=== PATIENT | male | born 1995 | race Caucasian/White ===

== ENCOUNTER 2022-01-19 08:40 | Emergency (ER) | payer BC ==
[2022-01-19] MEDS ORDERED: NA CHLORIDE 0.9% 1,000 ML ONE (09:10)
[2022-01-19 09:19] LABS: Absolute Lymphocytes (CBC) 1.7 K/uL (0.7-4.9); Hematocrit 42.7 % (39.6-49.0); Lymphocytes % 26.3 % (15.3-44.8); MCV 91.7 fL (80-100); MPV 8.9 fL (7.6-11.3); RBC Red Blood Cell Count 4.65 M/uL (4.33-5.43)
[2022-01-19 09:37] LABS: Albumin 4.1 g/dL (3.4-5.0); Bilirubin Total 0.3 mg/dL (0.2-1.0); Potassium 4.1 mmol/L (3.5-5.1)
--- NOTE | 2022-01-19 09:40 | RAD REPORT ---
EXAM DESCRIPTION: CT - Head Brain Wo Cont - 01/19/2022 9:29 am CLINICAL HISTORY: Seizure disorder, no clinical change COMPARISON: Head Brain Wo Cont dated 04/07/2017; Head Brain Wo Cont dated 03/26/2017 TECHNIQUE: All CT scans are performed using dose optimization technique as appropriate and may inclu de automated exposure control or mA/KV adjustment according to patient size. FINDINGS: No intracranial hemorrhage, hydrocephalus or extra-axial fluid collection.No areas of brai n edema or evidence of midline shift. Left frontal lobe encephalomalacia is present. The paranasal sinuses and mastoids are clear. The calvarium is intact. IMPRESSION: No acute intracranial abnormality.
--- NOTE | 2022-01-19 10:11 | EDPHYS ---
Physician Documentation [facility] Name: Chan Del Cid Age: 26 yrs Sex: Male : 1995 Arrival Date: 01/19/2022 Time: 08:41 Bed 5 Private MD: ED Physician Sanjay Cadena HPI: 01/19 09:04 This 26 yrs old Male presents to ER via EMS with complaints of Seizure. kdr 09:04 The patient presents after having a single isolated seizure. Character of seizure(s): kdr Loss of consciousness: the patient experienced loss of consciousness, Motor activity:. Seizure onset: just prior to arrival. Context: the seizure(s) was witnessed, by co-worker(s), occurred at work, occurred while the patient was working, Contributing factors: unknown. Seizure Hx: Last seizure: The patient's last seizure was approximately 6 month(s) ago, Seizure medications:. Associated injury: Head/face: left side of the back of head and left occipital area. EMS care: none. Current symptoms: Currently, the patient is not experiencing any symptoms, headache, that is mild. The patient has experienced similar episodes in the past, multiple times. The patient has not recently seen a physician. Historical: - Allergies: 08:50 PENICILLINS; ss - Home Meds: 08:50 zonisamide Oral [Active]; ss - PMHx: 08:50 epilepsy; ss - Immunization history:: Adult Immunizations unknown, Client reports receiving the 2nd dose of the Covid vaccine. - Social history:: Smoking status: Patient denies any tobacco usage or history of. Patient/guardian denies using street drugs. ROS: 09:04 Constitutional: Negative for fever, chills, and weight loss, Eyes: Negative for injury, kdr pain, redness, and discharge, ENT: Negative for injury, pain, and discharge, Neck: Negative for injury, pain, and swelling, Cardiovascular: Negative for chest pain, palpitations, and edema, Respiratory: Negative for shortness of breath, cough, wheezing, and pleuritic chest pain, Abdomen/GI: Negative for abdominal pain, nausea, vomiting, diarrhea, and constipation, Back: Negative for injury and pain, : Negative for injury, bleeding, discharge, and swelling, MS/Extremity: Negative for injury and deformity, Skin: Negative for injury, rash, and discoloration, Psych: Negative for depression, anxiety, suicide ideation, homicidal ideation, and hallucinations, Allergy/Immunology: Negative for hives, rash, and allergies, Endocrine: Negative for neck swelling, polydipsia, polyuria, polyphagia, and marked weight changes, Hematologic/Lymphatic: Negative for swollen nodes, abnormal bleeding, and unusual bruising. 09:04 Neuro: Positive for headache, seizure activity, Negative for altered mental status, dizziness, gait disturbance, hearing loss, numbness, speech changes, syncope, near syncope, tingling, tinnitus, tremor, visual changes. Exam: 09:04 Constitutional: This is a well developed, well nourished patient who is awake, alert, kdr and in no acute distress. Head/Face: Normocephalic, atraumatic. Eyes: Pupils equal round and reactive to light, extra-ocular motions intact. Lids and lashes normal. Conjunctiva and sclera are non-icteric and not injected. Cornea within normal limits. Periorbital areas with no swelling, redness, or edema. Neck: Trachea midline, no thyromegaly or masses palpated, and no cervical lymphadenopathy. Supple, full range of motion without nuchal rigidity, or vertebral point tenderness. No Meningismus. Chest/axilla: Normal chest wall appearance and motion. Nontender with no deformity. No lesions are appreciated. Cardiovascular: Regular rate and rhythm with a normal S1 and S2. No gallops, murmurs, or rubs. Normal PMI, no JVD. No pulse deficits. Respiratory: Lungs have equal breath sounds bilaterally, clear to auscultation and percussion. No rales, rhonchi or wheezes noted. No increased work of breathing, no retractions or nasal flaring. Abdomen/GI: Soft, non-tender, with normal bowel sounds. No distension or tympany. No guarding or rebound. No evidence of tenderness throughout. Back: No spinal tenderness. No costovertebral tenderness. Full range of motion. Skin: Warm, dry with normal turgor. Normal color with no rashes, no lesions, and no evidence of cellulitis. MS/ Extremity: Pulses equal, no cyanosis. Neurovascular intact. Full, normal range of motion. Neuro: Awake and alert, GCS 15, oriented to person, place, time, and situation. Cranial nerves II-XII grossly intact. Motor strength 5/5 in all extremities. Sensory grossly intact. Cerebellar exam normal. Normal gait. Psych: Awake, alert, with orientation to person, place and time. Behavior, mood, and affect are within normal limits. Vital Signs: 08:45 BP 129 / 80; Pulse 133; Resp 17; Temp 98.4(O); Pulse Ox 98% on R/A; Weight 72.57 kg; ss Height 5 ft. 11 in. (180.34 cm); Pain 6/10; 09:01 Pulse 115; kr3 08:45 Body Mass Index 22.32 (72.57 kg, 180.34 cm) ss [place] Coma Score: 08:50 Eye Response: spontaneous(4). Verbal Response: oriented(5). Motor Response: obeys ss commands(6). Total: 15. MDM: 10:10 Patient medically screened. kdr 10:37 Data reviewed: vital signs, nurses notes, lab test result(s), radiologic studies. kdr Counseling: I had a detailed discussion with the patient and/or guardian regarding: the historical points, exam findings, and any diagnostic results supporting the discharge/admit diagnosis, lab results, radiology results, the need for outpatient follow up. 01/19 09:01 Order name: CBC with Diff; Complete Time: 10:08 kdr 01/19 09:01 Order name: Comprehensive Metabolic Panel; Complete Time: 10:08 kdr 01/19 09:01 Order name: CT Head Brain wo Cont; Complete Time: 10:08 kdr Administered Medications: 09:05 Drug: NS 0.9% 1000 ml Route: IV; Rate: 1 bolus; Site: right antecubital; vargas Disposition Summary: 01/19/22 10:10 Discharge Ordered Location: Home kdr Problem: an acute exacerbation kdr Symptoms: have improved kdr Condition: Stable kdr Diagnosis - Other seizures kdr - Unspecified superficial injury of other part of head, initial encounter kdr Followup: kdr - With: Private Physician - When: 2 - 3 days - Reason: If symptoms return, Further diagnostic work-up, Recheck today's complaints, Continuance of care, Re-evaluation by your physician Discharge Instructions: - Discharge Summary Sheet kdr - Seizure, Adult, [id number] kdr - Head Injury, Adult, [id number] kdr Forms: - Medication Reconciliation Form kdr - Thank You Letter kdr - Work release form eb Prescriptions: - Ibuprofen 600 mg Oral Tablet - take 1 tablet by ORAL route every 6 hours As needed take with food; 12 tablet; kdr Refills: 0, Product Selection Permitted Signatures: Dispatcher [employer] Sanjay Villa MD MD kdr Smirch, Shelby, RN RN ss Jessika Ramirez RN RN vargas
--- NOTE | 2022-01-19 10:11 | ER ---
Nurse's Notes [facility] Name: Chan Del Cid Age: 26 yrs Sex: Male : 1995 Arrival Date: 01/19/2022 Time: 08:41 Bed 5 Private MD: Diagnosis: Other seizures;Unspecified superficial injury of other part of head, initial encounter Presentation: 01/19 08:45 Chief complaint: Patient states: seizure while at work that reportedly lasted 15 ss seconds. HX of epilepsy. Pt states that his last seizure was, "a long time ago." Pt did fall backwards, hitting head. Small laceration noted to back of head. No active bleeding noted at this time. Coronavirus screen: Client denies travel out of the [place] in the last 14 days. Ebola Screen: Patient denies exposure to infectious person. Patient denies travel to an Ebola-affected area in the 21 days before illness onset. Initial Sepsis Screen: Does the patient meet any 2 criteria? No. Patient's initial sepsis screen is negative. Does the patient have a suspected source of infection? No. Patient's initial sepsis screen is negative. Risk Assessment: Do you want to hurt yourself or someone else? Patient reports no desire to harm self or others. Onset of symptoms was January 19, 2022. Care prior to arrival: IV initiated. 18 GA, in the right antecubital area, Glucose check: 205. 08:45 Method Of Arrival: EMS: [facility] 08:45 Acuity: AIME 2 ss Triage Assessment: 08:54 General: Appears in no apparent distress. Behavior is calm, cooperative. vargas Historical: - Allergies: 08:50 PENICILLINS; ss - Home Meds: 08:50 zonisamide Oral [Active]; ss - PMHx: 08:50 epilepsy; ss - Immunization history:: Adult Immunizations unknown, Client reports receiving the 2nd dose of the Covid vaccine. - Social history:: Smoking status: Patient denies any tobacco usage or history of. Patient/guardian denies using street drugs. Screenin:50 Abuse screen: Denies threats or abuse. Denies injuries from another. Nutritional ss screening: No deficits noted. Tuberculosis screening: Never had TB. Fall Risk Fall in past 12 months (25 points). Secondary diagnosis (15 points) seizures, IV access (20 points). Ambulatory Aid- None/Bed Rest/Nurse Assist (0 pts). Gait- Normal/Bed Rest/Wheelchair (0 pts) Mental Status- Oriented to own ability (0 pts). Assessment: 08:50 Reassessment: Dr. Cadena at bedside evaluating patient. ss 08:53 Pain: Denies pain. Neuro: Level of Consciousness is awake, alert, obeys commands, vargas Oriented to person, place, time, situation, Seizure activity reported prior to arrival. Derm: abrasion to right side forehead. Vital Signs: 08:45 BP 129 / 80; Pulse 133; Resp 17; Temp 98.4(O); Pulse Ox 98% on R/A; Weight 72.57 kg; ss Height 5 ft. 11 in. (180.34 cm); Pain 6/10; 09:01 Pulse 115; kr3 08:45 Body Mass Index 22.32 (72.57 kg, 180.34 cm) ss [place] Coma Score: 08:50 Eye Response: spontaneous(4). Verbal Response: oriented(5). Motor Response: obeys ss commands(6). Total: 15. ED Course: 08:41 Patient arrived in ED. eb 08:44 Jessika Ramirez, RN is Primary Nurse. vargas 08:48 Sanjay Cadena MD is Attending Physician. kdr 08:49 Bed in low position. Call light in reach. Side rails up X 1. Seizure precautions mb7 initiated. Door closed. Noise minimized. Warm blanket given. Client placed on continuous cardiac and pulse oximetry monitoring. NIBP monitoring applied. gusset stitcher on. Pulse ox on. 08:50 Triage completed. ss 08:50 Arm band placed on right wrist. ss 08:53 No provider procedures requiring assistance completed. vargas 09:30 CT Head Brain wo Cont In Process Unspecified. EDMS 10:28 IV discontinued, intact, Pressure dressing applied. vargas Administered Medications: 09:05 Drug: NS 0.9% 1000 ml Route: IV; Rate: 1 bolus; Site: right antecubital; vargas Medication: 08:53 VIS not applicable for this client. vargas Outcome: 10:10 Discharge ordered by . kdr 10:28 Discharged to home ambulatory, with family. vargas 10:28 Condition: good 10:28 Discharge instructions given to patient, Prescriptions given X 1. 10:29 Patient left the ED. vargas Signatures: Dispatcher [employer] EDMS Sanjay Cadena MD MD [facility] Susan Baker RN RN Marybeth Vega [place] [id number] Jessika Ramirez RN RN ha Reid, Kelley, RN RN kr3
[2022-01-19 11:09] VITALS: BP 129/80; TEMP 98.4; O2SAT 98
== END 2022-01-19 10:29 | disposition home or self-care (01) ==
LOC: ER 08:40
DX: G40.909 Epilepsy, unspecified, not intractable, without status epilepticus (principal); S00.80XA Unspecified superficial injury of other part of head, initial encounter; Z88.0 Allergy status to penicillin
CPT/HCPCS: 85025; 36415; 80053; 70450; 99284; J7030